=== PATIENT | male | born 1980 | race Caucasian/White ===

== ENCOUNTER 2016-07-31 13:39 | Emergency (ER) | payer OTHER | END 2016-07-31 15:54 | disposition home or self-care (01) | LOC: ER 13:39 | DX: S93.491A Sprain of other ligament of right ankle, initial encounter (principal); S93.611A Sprain of tarsal ligament of right foot, initial encounter; F90.9 Attention-deficit hyperactivity disorder, unspecified type; J45.909 Unspecified asthma, uncomplicated; Z91.013 Allergy to seafood; Y93.39 Activity, other involving climbing, rappelling and jumping off; Y92.69 Other specified industrial and construction area as the place of occurrence of the external cause; Y99.0 Civilian activity done for income or pay ==

== ENCOUNTER 2016-08-24 20:12 | Emergency (ER) | payer OTHER | END 2016-08-24 22:40 | disposition home or self-care (01) | LOC: ER 20:12 | DX: K04.7 Periapical abscess without sinus (principal); Z91.013 Allergy to seafood | CPT/HCPCS: 96372 ==